=== PATIENT | male | born 1995 | race Caucasian/White ===

== ENCOUNTER 2018-01-08 13:38 | Emergency (ER) | payer OTHER ==
[~2018-01-08] VITALS: Ht 172.7 cm; Wt 81.2 kg
[2018-01-08] MEDS ORDERED: AMOXICILLIN500 M1 (14:00)
[2018-01-08] MEDS ORDERED: IBUPROFEN800 MG (14:00)
== END 2018-01-08 16:05 | disposition home or self-care (01) ==
LOC: ER 13:38
DX: K04.7 Periapical abscess without sinus (principal)